=== PATIENT | male | born 1960 | race Caucasian/White ===

== ENCOUNTER 2016-11-06 03:19 | Inpatient (IN) ==
[2016-11-06 12:55] LABS: Hemoglobin A1C 11.6 %
[2016-11-06 13:26] LABS: Amphetamine Screen,Urine Negative ng/mL (Cutoff=1000); Barbiturate Screen,Urine Negative ng/mL (Cutoff=200); Benzodiazepines Screen,Urine Negative ng/mL (Cutoff=200); Cannabinoid Screen,Urine Negative ng/mL (Cutoff = 50); Cocaine Screen,Urine Positive ng/mL (Cutoff= 300); Opiate Screen,Urine Positive ng/mL (Cutoff=300); Phencyclidine Screen,Urine Negative ng/mL (Cutoff=25)
[2016-11-07 05:28] LABS: Basophils # 0.1 K/mcL (0.0-0.2); Basophils % 0.8 %; Eosinophils # 0.3 K/mcL (0.0-0.6); Eosinophils % 4.7 %; Hematocrit 40.5 % (37.5-50.1); Hemoglobin 13.6 g/dL (12.9-16.9); Immature Granulocytes % 0.3 % (0-4); Lymphocytes # 2.3 K/mcL (0.6-4.6); Lymphocytes % 37.6 %; Mean Corpuscular HGB Conc 33.6 g/dL (31.6-35.5); Mean Corpuscular Hemoglobin 28.5 pg (28.0-33.3); Mean Corpuscular Volume 84.9 fL (83.0-100.0); Mean Platelet Volume 9.9 fL (9.4-12.4); Monocytes # 0.6 K/mcL (0.0-1.3); Monocytes % 9.6 %; Neutrophils # 2.9 K/mcL (1.6-8.9); Platelet Count 216 K/mcL (140-400); Red Blood Count 4.77 M/mcL (4.19-5.50); Red Cell Distribution Width 12.9 % (11.5-14.5)
[2016-11-07 05:43] LABS: BUN/Creatinine Ratio 15 (6-26); Blood Urea Nitrogen 13 mg/dL (8-26); Calcium 8.2 mg/dL (8.6-10.8); Carbon Dioxide 17 mEq/L (19-29); Chloride 106 mEq/L (98-109); Glucose 254 mg/dL (70-99); Osmolality,Calculated 293 (280-300); Sodium 137 mEq/L (136-145); eGFR For African Americans > 60 (> 60); eGFR For Non-African Americans > 60 (> 60)
[2016-11-07 05:44] LABS: Magnesium 2.3 mg/dL (1.6-2.6); Potassium 4.4 mEq/L (3.5-4.5)
[2016-11-07 10:07] LABS: INR 1.1; Prothrombin Time 12.1 Seconds (9.4-12.1)
[2016-11-07 13:38] VITALS: BP 146/113
== END 2016-11-07 14:05 | disposition home or self-care (01) | DRG 282 ==
LOC: 2NENU
PROVIDERS: ADMIT Internal Medicine; ATTEND Internal Medicine

== ENCOUNTER 2019-08-08 21:34 | Observation (INO) ==
[2019-08-08] MEDS ORDERED: Ipratropium/Albuterol Neb 3 ML IH ONE (21:39)
[2019-08-08] MEDS ORDERED: predniSONE 20 MG TABLET PO ONE (21:39)
[2019-08-08 22:00] LABS: Basophils % 0.4 %; Eosinophils # 0.2 K/mcL (0.0-0.6); Eosinophils % 1.6 %; Hematocrit 46.4 % (37.5-50.1); Hemoglobin 15.5 g/dL (12.9-16.9); Immature Granulocytes % 0.5 % (0-4); Lymphocytes # 2.6 K/mcL (0.6-4.6); Lymphocytes % 25.9 %; Mean Corpuscular HGB Conc 33.4 g/dL (31.6-35.5); Mean Corpuscular Hemoglobin 28.9 pg (28.0-33.3); Mean Corpuscular Volume 86.6 fL (83.0-100.0); Mean Platelet Volume 10.2 fL (9.4-12.4); Monocytes # 0.9 K/mcL (0.0-1.3); Monocytes % 8.9 %; Neutrophils # 6.3 K/mcL (1.6-8.9); Platelet Count 326 K/mcL (140-400); Red Blood Count 5.36 M/mcL (4.19-5.50); Red Cell Distribution Width 14.8 % (11.5-14.5); Segmented Neutrophils % 62.7 %; White Blood Count 10.1 K/mcL (4.3-11.1)
[2019-08-08 22:17] LABS: INR 1.3; Prothrombin Time 14.9 Seconds (9.4-12.1)
[2019-08-08 22:18] LABS: Alanine Aminotransferase 25 Units/L (7-52); Albumin 4.2 g/dL (3.5-5.7); Albumin/Globulin Ratio 1.4 (1.1-2.2); Alkaline Phosphatase 47 Units/L (34-104); Aspartate Amino Transferase 19 Units/L (13-39); BUN/Creatinine Ratio 19 (6-26); Bilirubin,Total 0.5 mg/dL (0.3-1.0); Blood Urea Nitrogen 23 mg/dL (8-23); Calcium 8.8 mg/dL (8.6-10.3); Carbon Dioxide 22 mEq/L (23-29); Chloride 106 mEq/L (98-107); Glucose 140 mg/dL (70-105); Osmolality,Calculated 288 (280-300); Potassium 4.2 mEq/L (3.5-5.1); Sodium 136 mEq/L (136-145); Total Protein 7.2 g/dL (6.4-8.9); eGFR For African Americans > 60 (> 60); eGFR For Non-African Americans > 60 (> 60)
[2019-08-08 22:25] LABS: Troponin I 0.06 ng/mL (< 0.04)
[2019-08-08] MEDS ORDERED: Isovue-370 500 ML BOTTLE IVP ONE (22:25)
[2019-08-08] MEDS ORDERED: Aspirin 325 MG TABLET PO ONE (22:26)
[2019-08-08] MEDS: Furosemide 40 MG/4 ML VIAL IVP ONE (23:01)
[2019-08-09] MEDS ORDERED: Ondansetron ODT 4 MG TAB.RAPDIS SL PRN (03:20)
[2019-08-09] MEDS ORDERED: Naloxone 0.4 MG/ML INJ IVP PRN (03:20)
[2019-08-09 04:43] LABS: Basophils % 0.4 %; Eosinophils % 0.1 %; Hematocrit 44.4 % (37.5-50.1); Hemoglobin 14.5 g/dL (12.9-16.9); Immature Granulocytes % 0.6 % (0-4); Lymphocytes # 0.6 K/mcL (0.6-4.6); Lymphocytes % 7.7 %; Mean Corpuscular HGB Conc 32.7 g/dL (31.6-35.5); Mean Corpuscular Hemoglobin 28.2 pg (28.0-33.3); Mean Corpuscular Volume 86.2 fL (83.0-100.0); Mean Platelet Volume 10.7 fL (9.4-12.4); Monocytes # 0.2 K/mcL (0.0-1.3); Platelet Count 309 K/mcL (140-400); Red Blood Count 5.15 M/mcL (4.19-5.50); Red Cell Distribution Width 14.6 % (11.5-14.5); Segmented Neutrophils % 89.2 %; White Blood Count 7.9 K/mcL (4.3-11.1)
[2019-08-09 05:10] LABS: Alanine Aminotransferase 23 Units/L (7-52); Albumin 3.9 g/dL (3.5-5.7); Albumin/Globulin Ratio 1.4 (1.1-2.2); Alkaline Phosphatase 44 Units/L (34-104); Aspartate Amino Transferase 18 Units/L (13-39); BUN/Creatinine Ratio 19 (6-26); Bilirubin,Total 0.5 mg/dL (0.3-1.0); Blood Urea Nitrogen 22 mg/dL (8-23); Calcium 8.5 mg/dL (8.6-10.3); Carbon Dioxide 22 mEq/L (23-29); Chloride 103 mEq/L (98-107); Chol/HDL Ratio 5.7 (0-4.9); Cholesterol 148 mg/dL (< 200); Globulin 2.8 g/dL (2.4-3.5); Glucose 268 mg/dL (70-105); HDL Cholesterol 26 mg/dL (40-59); LDL Cholesterol,Calculated 96 mg/dL (0-99); Magnesium 1.8 mg/dL (1.6-2.6); Osmolality,Calculated 293 (280-300); Phosphorous 3.3 mg/dL (2.7-4.5); Potassium 4.1 mEq/L (3.5-5.1); Sodium 135 mEq/L (136-145); Total Protein 6.7 g/dL (6.4-8.9); Triglycerides 131 mg/dL (< 150); eGFR For African Americans > 60 (> 60); eGFR For Non-African Americans > 60 (> 60)
[2019-08-09 05:16] LABS: Thyroid Stimulating Hormone 0.783 mcIU/mL (0.340-5.600)
[2019-08-09] MEDS ORDERED: D5% in Water 1,000 ML IVC PRN (05:35)
[2019-08-09] MEDS ORDERED: Dextrose Gel 15 GM/37.5 ML TUBE PO PRN ×2 (05:35)
[2019-08-09] MEDS ORDERED: *HR* Dextrose 50 % in Water (Syg) 50 ML SYRINGE IVP PRN (05:35)
[2019-08-09] MEDS: *HR* Heparin 5,000 UNIT/ML VIAL SQ SCH ×3 (06:52→21:27)
[2019-08-09] MEDS ORDERED: Furosemide 40 MG/4 ML VIAL IVP SCH (08:00)
[2019-08-09 08:44] LABS: Estimated Average Glucose 177 mg/dl
[2019-08-09 08:59] LABS: Bilirubin,Urine Negative (Negative); Blood,Urine Negative (Negative); Clarity,Urine Clear (Clear); Color,Urine Yellow (Yellow); Glucose,Urine (UA) Normal (Normal); Ketones,Urine Negative (Negative); Leukocyte Esterase,Urine Negative (Negative); Nitrite,Urine Negative (Negative); Protein,Urine Negative (Neg-Trace); Specific Gravity,Urine 1.013 (1.010-1.025); Urobilinogen,Urine Normal (Normal)
[2019-08-09] MEDS ORDERED: Metoprolol XL (24 HR) Succ 25 MG TAB.ER.24H PO SCH (09:00)
[2019-08-09 09:26] LABS: Amphetamine Screen,Urine Negative ng/mL (Cutoff=1000); Barbiturate Screen,Urine Negative ng/mL (Cutoff=200); Benzodiazepines Screen,Urine Negative ng/mL (Cutoff=200); Cannabinoid Screen,Urine Negative ng/mL (Cutoff = 50); Cocaine Screen,Urine Negative ng/mL (Cutoff= 300); Opiate Screen,Urine Negative ng/mL (Cutoff=300); Phencyclidine Screen,Urine Negative ng/mL (Cutoff=25)
[2019-08-09] MEDS: Aspirin Enteric Coated 81 MG Tablet PO SCH (10:39)
[2019-08-09] MEDS: traZODone 50 MG TABLET PO SCH ×2 (10:39→21:25)
[2019-08-09] MEDS: Insulin LISPRO 300 UNITS/3 ML VIAL SQ SCH ×3 (10:42→18:36)
[2019-08-09] MEDS: Furosemide 40 MG/4 ML VIAL IVP ONE (10:51)
[2019-08-09] MEDS: Nicotine 21 MG PATCH.TD24 TD SCH (21:57)
[2019-08-10] MEDS: *HR* Heparin 5,000 UNIT/ML VIAL SQ SCH ×3 (05:29→19:55)
[2019-08-10 06:58] LABS: BUN/Creatinine Ratio 25 (6-26); Blood Urea Nitrogen 28 mg/dL (8-23); Calcium 8.4 mg/dL (8.6-10.3); Carbon Dioxide 24 mEq/L (23-29); Chloride 104 mEq/L (98-107); Glucose 214 mg/dL (70-105); Osmolality,Calculated 300 (280-300); Potassium 3.9 mEq/L (3.5-5.1); Sodium 139 mEq/L (136-145); eGFR For African Americans > 60 (> 60); eGFR For Non-African Americans > 60 (> 60)
[2019-08-10] MEDS: traZODone 50 MG TABLET PO SCH ×2 (08:17→19:56)
[2019-08-10] MEDS: Aspirin Enteric Coated 81 MG Tablet PO SCH (08:17)
[2019-08-10] MEDS: Nicotine 21 MG PATCH.TD24 TD SCH (08:23)
[2019-08-10] MEDS: Insulin LISPRO 300 UNITS/3 ML VIAL SQ SCH ×3 (08:23→19:11)
[2019-08-10] MEDS: Cholecalciferol (D-3) 1,000 UNIT (25MCG) TABLET PO SCH (08:31)
[2019-08-10] MEDS ORDERED: Metoprolol XL (24 HR) Succ 50 MG TAB.ER.24H PO SCH (09:00)
[2019-08-10] MEDS ORDERED: Furosemide 40 MG/4 ML VIAL IVP SCH (09:00)
[2019-08-10] MEDS: Budesonide/Formoterol 80/4.5 1 PUFF INH IH SCH ×2 (10:19→21:32)
[2019-08-10] MEDS ORDERED: Albuterol 2.5 MG/3 ML NEBULIZER IH PRN (15:00)
[2019-08-10] MEDS: Spironolactone 25 MG TABLET PO SCH (17:28)
[2019-08-10] MEDS ORDERED: Insulin DETEMIR 100 UNIT/ML X5UNITS SQ SCH (21:00)
[2019-08-11 05:27] LABS: Hematocrit 44.6 % (37.5-50.1); Hemoglobin 14.9 g/dL (12.9-16.9); Mean Corpuscular HGB Conc 33.4 g/dL (31.6-35.5); Mean Corpuscular Hemoglobin 28.8 pg (28.0-33.3); Mean Corpuscular Volume 86.1 fL (83.0-100.0); Mean Platelet Volume 10.3 fL (9.4-12.4); Platelet Count 336 K/mcL (140-400); Red Blood Count 5.18 M/mcL (4.19-5.50); Red Cell Distribution Width 14.7 % (11.5-14.5); White Blood Count 8.8 K/mcL (4.3-11.1)
[2019-08-11] MEDS: *HR* Heparin 5,000 UNIT/ML VIAL SQ SCH (05:35)
[2019-08-11 05:49] LABS: BUN/Creatinine Ratio 24 (6-26); Blood Urea Nitrogen 30 mg/dL (8-23); Calcium 8.7 mg/dL (8.6-10.3); Carbon Dioxide 25 mEq/L (23-29); Chloride 103 mEq/L (98-107); Glucose 206 mg/dL (70-105); Osmolality,Calculated 298 (280-300); Potassium 4.1 mEq/L (3.5-5.1); Sodium 138 mEq/L (136-145); eGFR For African Americans > 60 (> 60); eGFR For Non-African Americans 58 (> 60)
[2019-08-11] MEDS: Budesonide/Formoterol 80/4.5 1 PUFF INH IH SCH (07:57)
[2019-08-11] MEDS: Insulin LISPRO 300 UNITS/3 ML VIAL SQ SCH (08:27)
[2019-08-11] MEDS ORDERED: Metoprolol XL (24 HR) Succ 25 MG TAB.ER.24H PO SCH (09:00)
[2019-08-11] MEDS ORDERED: Furosemide 40 MG TABLET PO SCH (09:00)
[2019-08-11] MEDS: Spironolactone 25 MG TABLET PO SCH (10:52)
[2019-08-11] MEDS: Cholecalciferol (D-3) 1,000 UNIT (25MCG) TABLET PO SCH (10:54)
[2019-08-11] MEDS: traZODone 50 MG TABLET PO SCH (10:54)
[2019-08-11] MEDS: Aspirin Enteric Coated 81 MG Tablet PO SCH (10:54)
[2019-08-11] MEDS: Nicotine 21 MG PATCH.TD24 TD SCH (10:55)
[2019-08-11 13:32] VITALS: BP 121/77
== END 2019-08-11 15:19 | disposition home or self-care (01) ==
LOC: 3BNU 21:34 → EMEROOARM 21:34 → 3BNU 23:35
PROVIDERS: ADMIT Family Medicine; ATTEND Family Medicine

== ENCOUNTER 2019-09-26 10:00 | Inpatient (IN) ==
[2019-09-26] MEDS ORDERED: Ipratropium/Albuterol Neb 3 ML IH ONE (10:14)
[2019-09-26] MEDS ORDERED: methylPREDNISolone 125 MG/2 ML VIAL IVP ONE (10:15)
[2019-09-26 10:58] LABS: Hematocrit 48.2 % (37.5-50.1); Hemoglobin 15.6 g/dL (12.9-16.9); Mean Corpuscular HGB Conc 32.4 g/dL (31.6-35.5); Mean Corpuscular Hemoglobin 28.3 pg (28.0-33.3); Mean Corpuscular Volume 87.3 fL (83.0-100.0); Mean Platelet Volume 10.6 fL (9.4-12.4); Platelet Count 193 K/mcL (140-400); Red Blood Count 5.52 M/mcL (4.19-5.50); Red Cell Distribution Width 18.5 % (11.5-14.5); White Blood Count 8.1 K/mcL (4.3-11.1)
[2019-09-26] MEDS ORDERED: Isovue-370 500 ML BOTTLE IVP ONE (11:03)
[2019-09-26 11:21] LABS: Alanine Aminotransferase 84 Units/L (7-52); Albumin 3.4 g/dL (3.5-5.7); Albumin/Globulin Ratio 1.3 (1.1-2.2); Alkaline Phosphatase 55 Units/L (34-104); Aspartate Amino Transferase 77 Units/L (13-39); BUN/Creatinine Ratio 23 (6-26); Bilirubin,Total 2.3 mg/dL (0.3-1.0); Blood Urea Nitrogen 25 mg/dL (8-23); Calcium 8.3 mg/dL (8.6-10.3); Carbon Dioxide 25 mEq/L (23-29); Chloride 102 mEq/L (98-107); Globulin 2.7 g/dL (2.4-3.5); Glucose 193 mg/dL (70-105); Lipase 9 Units/L (11-82); Osmolality,Calculated 294 (280-300); Potassium 3.6 mEq/L (3.5-5.1); Sodium 137 mEq/L (136-145); Total Protein 6.1 g/dL (6.4-8.9); eGFR For African Americans > 60 (> 60); eGFR For Non-African Americans > 60 (> 60)
[2019-09-26 11:27] LABS: Troponin I 0.09 ng/mL (< 0.04)
[2019-09-26 11:27] LABS: Bilirubin,Urine Small (Negative); Blood,Urine Negative (Negative); Clarity,Urine Clear (Clear); Color,Urine Dark Yellow (Yellow); Glucose,Urine (UA) Normal (Normal); Ketones,Urine Negative (Negative); Leukocyte Esterase,Urine Negative (Negative); Nitrite,Urine Negative (Negative); Protein,Urine 30 mg/dL (Neg-Trace); Specific Gravity,Urine 1.026 (1.010-1.025)
[2019-09-26 11:29] LABS: Bacteria,Urine None Seen per hpf (None-Few); Hyaline Casts,Urine None Seen per lpf (None-Few); Squamous Epithelial Cell,Urine Moderate per lpf (None-Few); WBC,Urine 0-3 per hpf (0-3)
[2019-09-26] MEDS ORDERED: Furosemide 40 MG/4 ML VIAL IVP ONE (12:03)
[2019-09-26] MEDS ORDERED: Piperacillin/Tazobactam 3.375 GM in 0.9 % Sodium Chloride Mini Bag 100 ML IVPB ONE (12:18)
[2019-09-26] MEDS ORDERED: levoFLOXacin 750 MG/150 ML 750 MG/150 ML BAG IVPB ONE (12:19)
[2019-09-26] MEDS ORDERED: Naloxone 0.4 MG/ML INJ IVP PRN (15:08)
[2019-09-26] MEDS ORDERED: Ipratropium/Albuterol Neb 3 ML IH PRN (15:11)
[2019-09-26] MEDS ORDERED: *HR* Dextrose 50 % in Water (Syg) 50 ML SYRINGE IVP PRN (15:12)
[2019-09-26] MEDS ORDERED: Dextrose Gel 15 GM/37.5 ML TUBE PO PRN ×2 (15:12)
[2019-09-26] MEDS ORDERED: D5% in Water 1,000 ML IVC PRN (15:12)
[2019-09-26] MEDS: *HR* Heparin 5,000 UNIT/ML VIAL SQ SCH (17:40)
[2019-09-26] MEDS: Metoprolol XL (24 HR) Succ 50 MG TAB.ER.24H PO SCH (17:40)
[2019-09-26] MEDS: Insulin LISPRO 300 UNITS/3 ML VIAL SQ SCH ×2 (17:46→21:54)
[2019-09-26] MEDS: Nicotine 7 MG PATCH.TD24 TD SCH (17:52)
[2019-09-26] MEDS: Piperacillin/Tazobactam 3.375 GM in 0.9 % Sodium Chloride Mini Bag 100 ML IVPB SCH (21:54)
[2019-09-27] MEDS: Nystatin POWDER 30 GM BOTTLE TP SCH ×4 (00:51→21:06)
[2019-09-27 01:34] LABS: Hematocrit 47.6 % (37.5-50.1); Hemoglobin 15.2 g/dL (12.9-16.9); Immature Granulocytes % 0.3 % (0-4); Lymphocytes # 0.4 K/mcL (0.6-4.6); Lymphocytes % 6.6 %; Mean Corpuscular HGB Conc 31.9 g/dL (31.6-35.5); Mean Corpuscular Hemoglobin 27.8 pg (28.0-33.3); Mean Corpuscular Volume 87.2 fL (83.0-100.0); Mean Platelet Volume 11.3 fL (9.4-12.4); Monocytes # 0.1 K/mcL (0.0-1.3); Monocytes % 2.2 %; Neutrophils # 5.4 K/mcL (1.6-8.9); Platelet Count 177 K/mcL (140-400); Red Blood Count 5.46 M/mcL (4.19-5.50); Red Cell Distribution Width 18.8 % (11.5-14.5); Segmented Neutrophils % 90.9 %; White Blood Count 5.9 K/mcL (4.3-11.1)
[2019-09-27 01:52] LABS: Alanine Aminotransferase 69 Units/L (7-52); Albumin 3.2 g/dL (3.5-5.7); Albumin/Globulin Ratio 1.3 (1.1-2.2); Alkaline Phosphatase 54 Units/L (34-104); Aspartate Amino Transferase 57 Units/L (13-39); BUN/Creatinine Ratio 21 (6-26); Bilirubin,Direct 0.7 mg/dL (0.0-0.2); Bilirubin,Indirect 0.7 mg/dL (0.0-1.0); Bilirubin,Total 1.4 mg/dL (0.3-1.0); Blood Urea Nitrogen 24 mg/dL (8-23); Calcium 7.9 mg/dL (8.6-10.3); Carbon Dioxide 23 mEq/L (23-29); Chloride 103 mEq/L (98-107); Globulin 2.5 g/dL (2.4-3.5); Glucose 273 mg/dL (70-105); Osmolality,Calculated 296 (280-300); Potassium 4.1 mEq/L (3.5-5.1); Sodium 136 mEq/L (136-145); Total Protein 5.7 g/dL (6.4-8.9); eGFR For African Americans > 60 (> 60); eGFR For Non-African Americans > 60 (> 60)
[2019-09-27] MEDS: Piperacillin/Tazobactam 3.375 GM in 0.9 % Sodium Chloride Mini Bag 100 ML IVPB SCH ×4 (03:38→23:36)
[2019-09-27] MEDS ORDERED: methylPREDNISolone 125 MG/2 ML VIAL IVP SCH (05:41)
[2019-09-27 06:05] LABS: ABG Base Excess -3 mEq/L (-2 to 3); ABG HCO3 22 mEq/L (21-27); ABG Oxygen Saturation 98 % (95-98); ABG PCO2 36 mmHg (35-45); ABG PH 7.39 pH Units (7.32-7.45); ABG PO2 111 mmHg (85-104); ABG TCO2 23 mEq/L (20-26)
[2019-09-27] MEDS: *HR* Heparin 5,000 UNIT/ML VIAL SQ SCH ×2 (06:29→15:51)
[2019-09-27] MEDS ORDERED: Aminoglycoside Consult 1 EACH MC ONE (08:20)
[2019-09-27] MEDS: Insulin LISPRO 300 UNITS/3 ML VIAL SQ SCH ×4 (08:24→21:06)
[2019-09-27] MEDS: Metoprolol XL (24 HR) Succ 50 MG TAB.ER.24H PO SCH (08:25)
[2019-09-27] MEDS: Nicotine 7 MG PATCH.TD24 TD SCH (08:25)
[2019-09-27] MEDS ORDERED: ALPRAZolam 0.5 MG TABLET PO ONE (08:40)
[2019-09-27] MEDS ORDERED: Furosemide 40 MG/4 ML VIAL IVP SCH (09:00)
[2019-09-27] MEDS ORDERED: Nicotine 7 MG PATCH.TD24 TD SCH (09:00)
[2019-09-27] MEDS ORDERED: Furosemide 40 MG/4 ML VIAL IVP ONE (13:46)
[2019-09-27] MEDS: MethylPREDNISolone 40 MG/ML VIAL IVP SCH ×2 (15:48→23:35)
[2019-09-27] MEDS: Aspirin Enteric Coated 81 MG Tablet PO SCH (15:50)
[2019-09-27] MEDS ORDERED: Vancomycin 1,750 MG in 0.9 % Sodium Chloride 250 ML IVPB SCH (16:00)
[2019-09-27] MEDS: *HR* LORazepam 2 MG/ML VIAL IVP PRN (17:30)
[2019-09-27] MEDS ORDERED: Haloperidol Lactate 5 MG/ML VIAL IVP ONE (20:40)
[2019-09-27] MEDS: Insulin DETEMIR 100 UNIT/ML X5UNITS SQ SCH (21:06)
[2019-09-27] MEDS: Vancomycin Oral Soln 125 MG/2.5 ML UDC PO SCH (21:13)
[2019-09-27] MEDS ORDERED: *HR* Promethazine 25 MG/ML VIAL IVP ONE (21:52)
[2019-09-28 02:42] LABS: Basophils % 0.1 %; Hematocrit 49.3 % (37.5-50.1); Hemoglobin 16.2 g/dL (12.9-16.9); Immature Granulocytes % 0.5 % (0-4); Lymphocytes % 8.8 %; Mean Corpuscular HGB Conc 32.9 g/dL (31.6-35.5); Mean Corpuscular Hemoglobin 28.5 pg (28.0-33.3); Mean Corpuscular Volume 86.6 fL (83.0-100.0); Mean Platelet Volume 11.4 fL (9.4-12.4); Monocytes # 0.5 K/mcL (0.0-1.3); Monocytes % 4.8 %; Platelet Count 170 K/mcL (140-400); Red Blood Count 5.69 M/mcL (4.19-5.50); Red Cell Distribution Width 18.8 % (11.5-14.5); Segmented Neutrophils % 85.8 %
[2019-09-28 02:44] LABS: Neutrophils # 9.4 K/mcL (1.6-8.9)
[2019-09-28 03:04] LABS: BUN/Creatinine Ratio 27 (6-26); Blood Urea Nitrogen 34 mg/dL (8-23); Calcium 8.2 mg/dL (8.6-10.3); Carbon Dioxide 20 mEq/L (23-29); Chloride 104 mEq/L (98-107); Glucose 141 mg/dL (70-105); Osmolality,Calculated 290 (280-300); Sodium 135 mEq/L (136-145); eGFR For African Americans > 60 (> 60); eGFR For Non-African Americans 59 (> 60)
[2019-09-28] MEDS: *HR* Heparin 5,000 UNIT/ML VIAL SQ SCH ×2 (04:39→16:43)
[2019-09-28] MEDS: Budesonide/Formoterol 80/4.5 1 PUFF INH IH SCH ×2 (07:29→19:46)
[2019-09-28] MEDS: Insulin LISPRO 300 UNITS/3 ML VIAL SQ SCH ×4 (07:40→20:24)
[2019-09-28] MEDS ORDERED: Furosemide 40 MG/4 ML VIAL IVP SCH (08:00)
[2019-09-28] MEDS: Piperacillin/Tazobactam 3.375 GM in 0.9 % Sodium Chloride Mini Bag 100 ML IVPB SCH ×3 (08:23→23:44)
[2019-09-28] MEDS: MethylPREDNISolone 40 MG/ML VIAL IVP SCH ×3 (08:29→23:44)
[2019-09-28] MEDS: Metoprolol XL (24 HR) Succ 50 MG TAB.ER.24H PO SCH (08:31)
[2019-09-28] MEDS: Spironolactone 25 MG TABLET PO SCH (08:31)
[2019-09-28] MEDS: Vancomycin Oral Soln 125 MG/2.5 ML UDC PO SCH ×4 (08:31→20:26)
[2019-09-28] MEDS: Aspirin Enteric Coated 81 MG Tablet PO SCH (08:32)
[2019-09-28] MEDS: Nicotine 21 MG PATCH.TD24 TD SCH (08:37)
[2019-09-28] MEDS: Nystatin POWDER 30 GM BOTTLE TP SCH ×3 (09:54→20:26)
[2019-09-28] MEDS: GI Cocktail 40 ML EACH PO ONE (12:28)
[2019-09-28] MEDS: Furosemide 40 MG/4 ML VIAL IVP SCH ×2 (15:46→18:24)
[2019-09-28] MEDS: Insulin DETEMIR 100 UNIT/ML X5UNITS SQ SCH (20:25)
[2019-09-29 02:24] LABS: Basophils % 0.1 %; Hematocrit 49.8 % (37.5-50.1); Hemoglobin 16.5 g/dL (12.9-16.9); Immature Granulocytes % 0.8 % (0-4); Lymphocytes # 0.6 K/mcL (0.6-4.6); Lymphocytes % 6.3 %; Mean Corpuscular HGB Conc 33.1 g/dL (31.6-35.5); Mean Corpuscular Hemoglobin 28.1 pg (28.0-33.3); Mean Corpuscular Volume 84.7 fL (83.0-100.0); Mean Platelet Volume 11.6 fL (9.4-12.4); Monocytes # 0.6 K/mcL (0.0-1.3); Monocytes % 6.6 %; Neutrophils # 8.3 K/mcL (1.6-8.9); Nucleated Red Blood Cells 0.5 /100 WBC (0); Platelet Count 187 K/mcL (140-400); Red Blood Count 5.88 M/mcL (4.19-5.50); Segmented Neutrophils % 86.2 %; White Blood Count 9.7 K/mcL (4.3-11.1)
[2019-09-29 02:44] LABS: Calcium 8.2 mg/dL (8.6-10.3)
[2019-09-29] MEDS: *HR* Heparin 5,000 UNIT/ML VIAL SQ SCH ×2 (04:56→17:37)
[2019-09-29] MEDS: Metoprolol XL (24 HR) Succ 50 MG TAB.ER.24H PO SCH (08:18)
[2019-09-29] MEDS: Nicotine 21 MG PATCH.TD24 TD SCH (08:18)
[2019-09-29] MEDS: MethylPREDNISolone 40 MG/ML VIAL IVP SCH (08:18)
[2019-09-29] MEDS: Spironolactone 25 MG TABLET PO SCH (08:18)
[2019-09-29] MEDS: Aspirin Enteric Coated 81 MG Tablet PO SCH (08:18)
[2019-09-29] MEDS: Vancomycin Oral Soln 125 MG/2.5 ML UDC PO SCH (08:19)
[2019-09-29] MEDS: Piperacillin/Tazobactam 3.375 GM in 0.9 % Sodium Chloride Mini Bag 100 ML IVPB SCH (08:19)
[2019-09-29] MEDS: Insulin LISPRO 300 UNITS/3 ML VIAL SQ SCH ×4 (08:20→21:34)
[2019-09-29] MEDS: Budesonide/Formoterol 80/4.5 1 PUFF INH IH SCH ×2 (10:26→19:43)
[2019-09-29] MEDS ORDERED: GI Cocktail 40 ML EACH PO ONE (14:54)
[2019-09-29] MEDS ORDERED: metOLazone 2.5 MG TABLET PO ONE (15:00)
[2019-09-29] MEDS: predniSONE 20 MG TABLET PO SCH (17:31)
[2019-09-29] MEDS: Nystatin POWDER 30 GM BOTTLE TP SCH ×3 (17:31→23:10)
[2019-09-29] MEDS: Insulin DETEMIR 100 UNIT/ML X5UNITS SQ SCH (21:34)
[2019-09-29] MEDS: *HR* LORazepam 2 MG/ML VIAL IVP PRN (21:34)
[2019-09-30 06:11] LABS: Basophils % 0.1 %; Hemoglobin 16.2 g/dL (12.9-16.9); Immature Granulocytes % 0.7 % (0-4); Lymphocytes # 0.7 K/mcL (0.6-4.6); Lymphocytes % 5.7 %; Mean Corpuscular HGB Conc 33.1 g/dL (31.6-35.5); Mean Corpuscular Hemoglobin 27.8 pg (28.0-33.3); Mean Corpuscular Volume 84.2 fL (83.0-100.0); Mean Platelet Volume 11.1 fL (9.4-12.4); Monocytes # 1.1 K/mcL (0.0-1.3); Monocytes % 9.5 %; Neutrophils # 9.8 K/mcL (1.6-8.9); Nucleated Red Blood Cells 0.2 /100 WBC (0); Platelet Count 165 K/mcL (140-400); Red Blood Count 5.82 M/mcL (4.19-5.50); Red Cell Distribution Width 18.9 % (11.5-14.5); White Blood Count 11.7 K/mcL (4.3-11.1)
[2019-09-30 06:30] LABS: Alanine Aminotransferase 51 Units/L (7-52); Albumin 3.3 g/dL (3.5-5.7); Albumin/Globulin Ratio 1.3 (1.1-2.2); Alkaline Phosphatase 57 Units/L (34-104); Aspartate Amino Transferase 35 Units/L (13-39); BUN/Creatinine Ratio 34 (6-26); Bilirubin,Total 1.5 mg/dL (0.3-1.0); Blood Urea Nitrogen 37 mg/dL (8-23); Calcium 8.6 mg/dL (8.6-10.3); Carbon Dioxide 25 mEq/L (23-29); Chloride 98 mEq/L (98-107); Globulin 2.5 g/dL (2.4-3.5); Glucose 212 mg/dL (70-105); Osmolality,Calculated 297 (280-300); Sodium 136 mEq/L (136-145); Total Protein 5.8 g/dL (6.4-8.9); eGFR For African Americans > 60 (> 60); eGFR For Non-African Americans > 60 (> 60)
[2019-09-30 07:00] LABS: Hepatitis B Surface Antigen Nonreactive (Nonreactive)
[2019-09-30 07:29] LABS: Hepatitis B Core IgM Nonreactive (Nonreactive)
[2019-09-30 07:30] LABS: Hepatitis A Antibody IgM Nonreactive (Nonreactive)
[2019-09-30] MEDS: *HR* Heparin 5,000 UNIT/ML VIAL SQ SCH ×2 (07:31→18:04)
[2019-09-30] MEDS: Budesonide/Formoterol 80/4.5 1 PUFF INH IH SCH ×2 (07:54→19:54)
[2019-09-30] MEDS: predniSONE 20 MG TABLET PO SCH (08:11)
[2019-09-30] MEDS: Nicotine 21 MG PATCH.TD24 TD SCH (08:12)
[2019-09-30] MEDS: Aspirin Enteric Coated 81 MG Tablet PO SCH (08:12)
[2019-09-30] MEDS: Metoprolol XL (24 HR) Succ 50 MG TAB.ER.24H PO SCH (08:12)
[2019-09-30] MEDS: Insulin LISPRO 300 UNITS/3 ML VIAL SQ SCH ×5 (08:13→23:28)
[2019-09-30] MEDS: Nystatin POWDER 30 GM BOTTLE TP SCH ×3 (08:14→23:22)
[2019-09-30] MEDS ORDERED: Albumin 25% 25gram/100mL 25 GM/100 ML IV.SOLN IVPB SCH (09:10)
[2019-09-30] MEDS ORDERED: Furosemide 40 MG/4 ML VIAL IVP SCH (09:15)
[2019-09-30] MEDS ORDERED: GI Cocktail 40 ML EACH PO ONE (10:17)
[2019-09-30] MEDS: Furosemide 40 MG/4 ML VIAL IVP SCH ×2 (10:30→18:03)
[2019-09-30 11:22] LABS: INR 1.6; Prothrombin Time 18.5 Seconds (9.4-12.1)
[2019-09-30] MEDS: GI Cocktail 40 ML EACH PO ONE (12:34)
[2019-09-30] MEDS: Vancomycin Oral Soln 125 MG/2.5 ML UDC PO SCH ×3 (12:38→23:10)
[2019-09-30 13:37] LABS: Hepatitis C Virus Antibody Reactive (Nonreactive)
[2019-09-30 13:49] LABS: RBC,Peritoneal Fluid 0.002 M/mcL
[2019-09-30 13:56] LABS: Appearance of Peritoneal Fl HAZY (Clear)
[2019-09-30 14:10] LABS: Lactate Dehydrogenase 323 Units/L (140-271); Total Protein 6.1 g/dL (6.4-8.9)
[2019-09-30 15:09] LABS: Basophils,Peritoneal Fluid 0 %; Eosinophils,Peritoneal Fluid 0 %
[2019-09-30] MEDS: Albumin 25% 25gram/100mL 25 GM/100 ML IV.SOLN IVPB SCH ×2 (15:54→23:22)
[2019-09-30 16:38] LABS: Amylase,Peritoneal Fluid 15 Units/L (No Ref Range); Glucose,Peritoneal Fluid 343 mg/dL (No Ref Range); LDH,Peritoneal Fluid 107 Units/L (No Ref Range); Total Protein,Peritoneal Fluid < 3.0 g/dL
[2019-09-30] MEDS: Insulin DETEMIR 100 UNIT/ML X5UNITS SQ SCH (23:15)
[2019-10-01] MEDS: *HR* Heparin 5,000 UNIT/ML VIAL SQ SCH ×2 (05:49→17:13)
[2019-10-01] MEDS: Albumin 25% 25gram/100mL 25 GM/100 ML IV.SOLN IVPB SCH ×3 (05:50→23:49)
[2019-10-01] MEDS: Budesonide/Formoterol 80/4.5 1 PUFF INH IH SCH ×2 (07:33→20:12)
[2019-10-01] MEDS: Nicotine 21 MG PATCH.TD24 TD SCH (10:12)
[2019-10-01] MEDS: Furosemide 40 MG/4 ML VIAL IVP SCH ×2 (10:12→19:02)
[2019-10-01] MEDS: Aspirin Enteric Coated 81 MG Tablet PO SCH (10:13)
[2019-10-01] MEDS: Metoprolol XL (24 HR) Succ 50 MG TAB.ER.24H PO SCH (10:13)
[2019-10-01] MEDS: Vancomycin Oral Soln 125 MG/2.5 ML UDC PO SCH ×4 (10:16→23:48)
[2019-10-01 11:03] LABS: Basophils % 0.1 %; Eosinophils % 0.3 %; Hematocrit 46.3 % (37.5-50.1); Hemoglobin 15.6 g/dL (12.9-16.9); Immature Granulocytes % 0.4 % (0-4); Lymphocytes # 1.6 K/mcL (0.6-4.6); Lymphocytes % 14.1 %; Mean Corpuscular HGB Conc 33.7 g/dL (31.6-35.5); Mean Corpuscular Hemoglobin 28.4 pg (28.0-33.3); Mean Corpuscular Volume 84.2 fL (83.0-100.0); Mean Platelet Volume 11.5 fL (9.4-12.4); Monocytes # 1.1 K/mcL (0.0-1.3); Neutrophils # 8.5 K/mcL (1.6-8.9); Platelet Count 181 K/mcL (140-400); Red Cell Distribution Width 18.1 % (11.5-14.5); Segmented Neutrophils % 75.1 %; White Blood Count 11.3 K/mcL (4.3-11.1)
[2019-10-01 11:12] LABS: Total Volume 24 Hour,Urine 4.78 Liters (0.80-1.80)
[2019-10-01 11:21] LABS: Alanine Aminotransferase 45 Units/L (7-52); Alkaline Phosphatase 48 Units/L (34-104); Aspartate Amino Transferase 40 Units/L (13-39); BUN/Creatinine Ratio 30 (6-26); Bilirubin,Total 1.7 mg/dL (0.3-1.0); Blood Urea Nitrogen 30 mg/dL (8-23); Calcium 9.4 mg/dL (8.6-10.3); Carbon Dioxide 37 mEq/L (23-29); Chloride 92 mEq/L (98-107); Glucose 120 mg/dL (70-105); Osmolality,Calculated 291 (280-300); Potassium 3.5 mEq/L (3.5-5.1); Sodium 137 mEq/L (136-145); eGFR For African Americans > 60 (> 60); eGFR For Non-African Americans > 60 (> 60)
[2019-10-01 11:24] LABS: Protein/Creatinine Ratio,Urine 0.51 mg/mg (0.00-0.20)
[2019-10-01 11:39] LABS: Hematocrit 49.5 % (37.5-50.1); Hemoglobin 16.3 g/dL (12.9-16.9); Mean Corpuscular HGB Conc 32.9 g/dL (31.6-35.5); Mean Corpuscular Hemoglobin 28.5 pg (28.0-33.3); Mean Corpuscular Volume 86.7 fL (83.0-100.0); Mean Platelet Volume 10.7 fL (9.4-12.4); Platelet Count 163 K/mcL (140-400); Red Blood Count 5.71 M/mcL (4.19-5.50); Red Cell Distribution Width 18.8 % (11.5-14.5); White Blood Count 11.2 K/mcL (4.3-11.1)
[2019-10-01 11:46] LABS: Ferritin 75 ng/mL (20-250)
[2019-10-01] MEDS ORDERED: *HR* Phytonadione 5 MG TABLET PO ONE (12:18)
[2019-10-01] MEDS: Lactulose Oral Soln 20 GM/30 ML UDC PO SCH ×2 (13:55→23:48)
[2019-10-01] MEDS: Nystatin POWDER 30 GM BOTTLE TP SCH ×3 (13:55→23:48)
[2019-10-01] MEDS: Insulin LISPRO 300 UNITS/3 ML VIAL SQ SCH ×3 (13:56→23:48)
[2019-10-01 16:37] LABS: Fluid Source for Albumin PERITONEAL FL
[2019-10-01] MEDS: Insulin DETEMIR 100 UNIT/ML X5UNITS SQ SCH (23:48)
[2019-10-02 06:14] LABS: INR 1.5
[2019-10-02] MEDS: Albumin 25% 25gram/100mL 25 GM/100 ML IV.SOLN IVPB SCH (06:20)
[2019-10-02] MEDS: *HR* Heparin 5,000 UNIT/ML VIAL SQ SCH ×2 (06:21→17:50)
[2019-10-02 06:26] LABS: BUN/Creatinine Ratio 31 (6-26); Blood Urea Nitrogen 30 mg/dL (8-23); Calcium 9.3 mg/dL (8.6-10.3); Carbon Dioxide 34 mEq/L (23-29); Chloride 94 mEq/L (98-107); Glucose 174 mg/dL (70-105); Osmolality,Calculated 296 (280-300); Potassium 3.6 mEq/L (3.5-5.1); Sodium 138 mEq/L (136-145); eGFR For African Americans > 60 (> 60); eGFR For Non-African Americans > 60 (> 60)
[2019-10-02] MEDS: Insulin LISPRO 300 UNITS/3 ML VIAL SQ SCH ×4 (07:44→23:10)
[2019-10-02] MEDS: Budesonide/Formoterol 80/4.5 1 PUFF INH IH SCH ×2 (07:52→21:41)
[2019-10-02] MEDS ORDERED: *HR* Phytonadione 5 MG TABLET PO ONE (10:34)
[2019-10-02] MEDS: Aspirin Enteric Coated 81 MG Tablet PO SCH (10:54)
[2019-10-02] MEDS: Furosemide 40 MG/4 ML VIAL IVP SCH ×3 (10:54→23:10)
[2019-10-02] MEDS: Lactulose Oral Soln 20 GM/30 ML UDC PO SCH ×2 (10:54→23:10)
[2019-10-02] MEDS: Nystatin POWDER 30 GM BOTTLE TP SCH ×3 (10:55→23:19)
[2019-10-02] MEDS: Metoprolol XL (24 HR) Succ 50 MG TAB.ER.24H PO SCH (10:55)
[2019-10-02] MEDS: Spironolactone 25 MG TABLET PO SCH (10:55)
[2019-10-02 11:05] LABS: AFP Tumor Marker Non-Pregnant 2 ng/mL (0-9)
[2019-10-02] MEDS: Pantoprazole 40 MG VIAL IVP SCH (11:10)
[2019-10-02] MEDS: Vancomycin Oral Soln 125 MG/2.5 ML UDC PO SCH ×4 (11:15→23:09)
[2019-10-02] MEDS: Nicotine 21 MG PATCH.TD24 TD SCH (11:15)
[2019-10-02] MEDS: Insulin DETEMIR 100 UNIT/ML X5UNITS SQ SCH (23:09)
[2019-10-02] MEDS: *HR* LORazepam 2 MG/ML VIAL IVP PRN (23:40)
[2019-10-03] MEDS: *HR* Heparin 5,000 UNIT/ML VIAL SQ SCH ×2 (05:08→18:18)
[2019-10-03 07:45] LABS: BUN/Creatinine Ratio 30 (6-26); Blood Urea Nitrogen 28 mg/dL (8-23); Calcium 8.7 mg/dL (8.6-10.3); Carbon Dioxide 32 mEq/L (23-29); Chloride 92 mEq/L (98-107); Glucose 314 mg/dL (70-105); Osmolality,Calculated 291 (280-300); Potassium 3.9 mEq/L (3.5-5.1); Sodium 132 mEq/L (136-145); eGFR For African Americans > 60 (> 60); eGFR For Non-African Americans > 60 (> 60)
[2019-10-03 08:13] LABS: ANA IgG by ELISA NONE DETECTED (None Detected); F-Actin (sm muscle) Ab IgG 4 Units (0-19)
[2019-10-03] MEDS ORDERED: GI Cocktail 40 ML EACH PO ONE (09:56)
[2019-10-03] MEDS: Pantoprazole 40 MG VIAL IVP SCH (10:16)
[2019-10-03] MEDS: Nicotine 21 MG PATCH.TD24 TD SCH (10:17)
[2019-10-03] MEDS: Spironolactone 25 MG TABLET PO SCH (10:17)
[2019-10-03] MEDS: Aspirin Enteric Coated 81 MG Tablet PO SCH (10:17)
[2019-10-03] MEDS: Insulin LISPRO 300 UNITS/3 ML VIAL SQ SCH ×4 (10:18→20:59)
[2019-10-03] MEDS: Vancomycin Oral Soln 125 MG/2.5 ML UDC PO SCH ×4 (10:18→21:03)
[2019-10-03] MEDS: Lactulose Oral Soln 20 GM/30 ML UDC PO SCH ×2 (10:19→21:05)
[2019-10-03] MEDS: Nystatin POWDER 30 GM BOTTLE TP SCH ×3 (10:19→21:05)
[2019-10-03] MEDS: Furosemide 40 MG/4 ML VIAL IVP SCH ×2 (10:19→21:04)
[2019-10-03] MEDS: Metoprolol XL (24 HR) Succ 50 MG TAB.ER.24H PO SCH (10:20)
[2019-10-03] MEDS: Budesonide/Formoterol 80/4.5 1 PUFF INH IH SCH ×2 (10:36→20:07)
[2019-10-03] MEDS: Albumin 25% 25gram/100mL 25 GM/100 ML IV.SOLN IVPB SCH (17:35)
[2019-10-03] MEDS: Insulin DETEMIR 100 UNIT/ML X5UNITS SQ SCH (21:03)
[2019-10-03] MEDS: *HR* LORazepam 2 MG/ML VIAL IVP PRN (21:04)
[2019-10-04] MEDS: Albumin 25% 25gram/100mL 25 GM/100 ML IV.SOLN IVPB SCH (00:44)
[2019-10-04 02:34] LABS: INR 1.2; Prothrombin Time 13.7 Seconds (9.4-12.1)
[2019-10-04 03:00] LABS: Alanine Aminotransferase 44 Units/L (7-52); Albumin 4.3 g/dL (3.5-5.7); Alkaline Phosphatase 55 Units/L (34-104); Aspartate Amino Transferase 43 Units/L (13-39); BUN/Creatinine Ratio 27 (6-26); Bilirubin,Total 1.4 mg/dL (0.3-1.0); Blood Urea Nitrogen 31 mg/dL (8-23); Carbon Dioxide 28 mEq/L (23-29); Chloride 95 mEq/L (98-107); Globulin 2.2 g/dL (2.4-3.5); Glucose 303 mg/dL (70-105); Osmolality,Calculated 298 (280-300); Potassium 3.9 mEq/L (3.5-5.1); Sodium 135 mEq/L (136-145); Total Protein 6.5 g/dL (6.4-8.9); eGFR For African Americans > 60 (> 60); eGFR For Non-African Americans > 60 (> 60)
[2019-10-04] MEDS: *HR* Heparin 5,000 UNIT/ML VIAL SQ SCH (06:15)
[2019-10-04] MEDS ORDERED: Albumin 25% 25gram/100mL 25 GM/100 ML IV.SOLN IVPB SCH (06:50)
[2019-10-04] MEDS: Budesonide/Formoterol 80/4.5 1 PUFF INH IH SCH (07:04)
[2019-10-04] MEDS ORDERED: Furosemide 40 MG/4 ML VIAL IVP SCH (08:00)
[2019-10-04 08:01] VITALS: BP 121/85
[2019-10-05 09:30] LABS: HCV Quant Interpretation NOT DETECTED (Not Detected); HCV Quant Log NOT DETECTED log IU/mL
== END 2019-10-04 10:25 | disposition left against medical advice (07) | DRG 291 ==
LOC: 2ANU 10:00 → EMEROOARM 10:00 → SUATTDRO 12:56 → 2ANU 13:25 → SUATTDRO 09-27 12:43 → 2ANU 09-28 16:11
PROVIDERS: ADMIT Student in an Organized Health Care Education/Training Program; ATTEND Internal Medicine

== ENCOUNTER 2019-10-12 08:04 | Inpatient (IN) ==
[2019-10-12] MEDS ORDERED: 0.9 % Sodium Chloride 1,000 ML IVC ONE ×2 (08:17→23:32)
[2019-10-12] MEDS ORDERED: Sodium Bicarbonate 50 MEQ/50 ML VIAL IVP ONE ×2 (08:22→16:44)
[2019-10-12 08:25] LABS: ABG PCO2 < 13 mmHg (35-45); ABG PH 7.36 pH Units (7.32-7.45); ABG PO2 579 mmHg (85-104); Blood Gas Modality AF; Blood Gas VT 550 cc
[2019-10-12] MEDS ORDERED: Thiamine (B-1) 100 MG, Folic Acid 1 MG, MVI, adult with vitamin K 10 ML in 0.9 % Sodi... IVPB ONE (08:30)
[2019-10-12] MEDS ORDERED: Sodium Bicarbonate 50 MEQ/50 ML VIAL ONE (08:40)
[2019-10-12] MEDS ORDERED: *HR* Etomidate 20 MG/10 ML AMPUL IVP ONE ×2 (08:59→09:55)
[2019-10-12] MEDS ORDERED: *HR* Rocuronium Bromide 50 MG/5 ML VIAL IVP ONE (08:59)
[2019-10-12 09:04] LABS: Basophils # 0.1 K/mcL (0.0-0.2); Basophils % 0.5 %; Eosinophils % 0.1 %; Hematocrit 48.5 % (37.5-50.1); Hemoglobin 16.1 g/dL (12.9-16.9); Immature Granulocytes % 1.8 % (0-4); Lymphocytes # 1.7 K/mcL (0.6-4.6); Lymphocytes % 10.6 %; Mean Corpuscular HGB Conc 33.2 g/dL (31.6-35.5); Mean Corpuscular Hemoglobin 28.8 pg (28.0-33.3); Mean Corpuscular Volume 86.8 fL (83.0-100.0); Monocytes % 6.1 %; Neutrophils # 12.8 K/mcL (1.6-8.9); Nucleated Red Blood Cells 0.2 /100 WBC (0); Platelet Count 194 K/mcL (140-400); Red Blood Count 5.59 M/mcL (4.19-5.50); Red Cell Distribution Width 19.3 % (11.5-14.5); Segmented Neutrophils % 80.9 %; White Blood Count 15.8 K/mcL (4.3-11.1)
[2019-10-12 09:12] LABS: INR 2.4; Prothrombin Time 27.3 Seconds (9.4-12.1)
[2019-10-12 09:14] LABS: Activated Partial Thrombo Time 29.7 Seconds (26.0-36.0)
[2019-10-12] MEDS ORDERED: Propofol 500 MG/50 ML INFUS..BTL ONE (09:14)
[2019-10-12 09:34] LABS: Troponin I 0.13 ng/mL (< 0.04)
[2019-10-12 09:35] LABS: Alanine Aminotransferase 77 Units/L (7-52); Albumin 4.4 g/dL (3.5-5.7); Albumin/Globulin Ratio 1.6 (1.1-2.2); Alkaline Phosphatase 93 Units/L (34-104); Aspartate Amino Transferase 85 Units/L (13-39); BUN/Creatinine Ratio 24 (6-26); Bilirubin,Direct 1.9 mg/dL (0.0-0.2); Bilirubin,Indirect 1.6 mg/dL (0.0-1.0); Bilirubin,Total 3.5 mg/dL (0.3-1.0); Blood Urea Nitrogen 34 mg/dL (8-23); Calcium 9.3 mg/dL (8.6-10.3); Carbon Dioxide 14 mEq/L (23-29); Chloride 98 mEq/L (98-107); Creatine Kinase 138 Units/L (30-223); Ethanol < 10 mg/dL (Less than 10); Globulin 2.7 g/dL (2.4-3.5); Glucose 78 mg/dL (70-105); Osmolality,Calculated 278 (280-300); Potassium 6.6 mEq/L (3.5-5.1); Sodium 131 mEq/L (136-145); Total Protein 7.1 g/dL (6.4-8.9); eGFR For African Americans > 60 (> 60); eGFR For Non-African Americans 51 (> 60)
[2019-10-12] MEDS ORDERED: Insulin Human Regular 10 UNIT in 0.9 % Sodium Chloride 10 ML IV ONE ×2 (09:38→20:42)
[2019-10-12] MEDS ORDERED: *HR* Dextrose 50 % in Water (Syg) 50 ML SYRINGE IVP STA (09:38)
[2019-10-12] MEDS ORDERED: Albuterol 2.5 MG/3 ML NEBULIZER IH ONE ×2 (09:39→20:43)
[2019-10-12 09:46] LABS: Thyroid Stimulating Hormone 3.309 mcIU/mL (0.340-5.600)
[2019-10-12] MEDS ORDERED: *HR* Rocuronium Bromide 100 MG/10 ML VIAL IVC ONE (09:55)
[2019-10-12 11:19] LABS: BUN/Creatinine Ratio 27 (6-26); Blood Urea Nitrogen 34 mg/dL (8-23); Calcium 9.5 mg/dL (8.6-10.3); Carbon Dioxide 14 mEq/L (23-29); Chloride 101 mEq/L (98-107); Glucose 49 mg/dL (70-105); Osmolality,Calculated 283 (280-300); Potassium 5.7 mEq/L (3.5-5.1); Sodium 134 mEq/L (136-145); eGFR For African Americans > 60 (> 60); eGFR For Non-African Americans 57 (> 60)
[2019-10-12] MEDS ORDERED: Piperacillin/Tazobactam 3.375 GM in 0.9 % Sodium Chloride Mini Bag 100 ML IVPB ONE (11:28)
[2019-10-12 12:30] LABS: Creatine Kinase 140 Units/L (30-223)
[2019-10-12] MEDS ORDERED: Naloxone 0.4 MG/ML INJ IVP PRN (12:58)
[2019-10-12] MEDS ORDERED: Artificial Tears SOLN 15 ML BOTTLE BOTH EYES PRN (13:22)
[2019-10-12] MEDS ORDERED: D5% in Water 1,000 ML IVC PRN (13:31)
[2019-10-12] MEDS ORDERED: Dextrose Gel 15 GM/37.5 ML TUBE PO PRN ×2 (13:31)
[2019-10-12] MEDS ORDERED: Furosemide 40 MG/4 ML VIAL IVP SCH (13:45)
[2019-10-12 13:46] LABS: Troponin I 0.15 ng/mL (< 0.04)
[2019-10-12 13:55] LABS: Magnesium 2.2 mg/dL (1.6-2.6)
[2019-10-12] MEDS: FentaNYL (PF) 1,000 MCG in 0.9 % Sodium Chloride 80 ML IVC SCH (14:01)
[2019-10-12] MEDS ORDERED: Vancomycin 1 EACH in 0.9 % Sodium Chloride 500 ML IVPB SCH (14:15)
[2019-10-12 14:27] LABS: Estimated Average Glucose 186 mg/dl
[2019-10-12 15:07] LABS: Bilirubin,Urine Small (Negative); Blood,Urine Large (Negative); Clarity,Urine Cloudy (Clear); Color,Urine Dark Yellow (Yellow); Glucose,Urine (UA) Normal (Normal); Ketones,Urine Negative (Negative); Leukocyte Esterase,Urine Negative (Negative); Nitrite,Urine Negative (Negative); Protein,Urine 100 mg/dL (Neg-Trace); Specific Gravity,Urine 1.022 (1.010-1.025); Urobilinogen,Urine Normal (Normal)
[2019-10-12 15:13] LABS: Calcium 8.4 mg/dL (8.6-10.3); Potassium 5.4 mEq/L (3.5-5.1)
[2019-10-12] MEDS: Piperacillin/Tazobactam 3.375 GM in 0.9 % Sodium Chloride Mini Bag 100 ML IVPB SCH ×2 (15:14→23:41)
[2019-10-12 15:48] LABS: Hyaline Casts,Urine Few per lpf (None-Few); RBC,Urine 30-50 per hpf (0-3); Squamous Epithelial Cell,Urine Few per lpf (None-Few)
[2019-10-12 15:49] LABS: Bacteria,Urine Many per hpf (None-Few)
[2019-10-12 15:56] LABS: Amphetamine Screen,Urine Positive ng/mL (Cutoff=1000); Barbiturate Screen,Urine Negative ng/mL (Cutoff=200); Benzodiazepines Screen,Urine Positive ng/mL (Cutoff=200); Cannabinoid Screen,Urine Negative ng/mL (Cutoff = 50); Cocaine Screen,Urine Negative ng/mL (Cutoff= 300); Opiate Screen,Urine Negative ng/mL (Cutoff=300); Phencyclidine Screen,Urine Negative ng/mL (Cutoff=25)
[2019-10-12] MEDS: Ipratropium/Albuterol Neb 3 ML IH SCH ×3 (16:17→23:50)
[2019-10-12] MEDS ORDERED: Vancomycin 500 MG in 0.9 % Sodium Chloride Mini Bag 100 ML IVPB ONE (16:19)
[2019-10-12] MEDS: Artificial Tears SOLN 15 ML BOTTLE BOTH EYES SCH ×3 (16:51→23:48)
[2019-10-12 17:01] LABS: ABG Base Excess -14 mEq/L (-2 to 3); ABG HCO3 18 mEq/L (21-27); ABG Oxygen Saturation 99 % (95-98); ABG PCO2 63 mmHg (35-45); ABG PH 7.06 pH Units (7.32-7.45); ABG PO2 184 mmHg (85-104); ABG TCO2 20 mEq/L (20-26); Blood Gas VT 500 cc
[2019-10-12] MEDS ORDERED: Sodium Bicarbonate 50 MEQ in 0.45 % Sodium Chloride 1,000 ML IVC SCH (17:15)
[2019-10-12] MEDS ORDERED: *HR* Phytonadione 10 MG/ML AMPUL SQ ONE (17:18)
[2019-10-12] MEDS: Albumin 25% 25gram/100mL 25 GM/100 ML IV.SOLN IVC SCH ×4 (17:57→20:06)
[2019-10-12] MEDS ORDERED: Norepinephrine 4 MG in 0.9 % Sodium Chloride 250 ML IVC SCH (18:00)
[2019-10-12] MEDS ORDERED: *HR* Norepinephrine 4 MG/4 ML VIAL IVC ONE (18:03)
[2019-10-12] MEDS ORDERED: D5% in Water 250 ML ONE (18:03)
[2019-10-12] MEDS ORDERED: 0.9 % Sodium Chloride 1,000 ML ONE ×2 (18:05→23:36)
[2019-10-12] MEDS ORDERED: 0.9 % Sodium Chloride 500 ML ONE (18:20)
[2019-10-12 18:38] LABS: ABG Base Excess -12 mEq/L (-2 to 3); ABG HCO3 15 mEq/L (21-27); ABG Oxygen Saturation 100 % (95-98); ABG PCO2 37 mmHg (35-45); ABG PH 7.22 pH Units (7.32-7.45); ABG PO2 203 mmHg (85-104); ABG TCO2 16 mEq/L (20-26); Blood Gas Modality ASSIST CONTROL; Blood Gas VT 550 cc
[2019-10-12] MEDS: Insulin LISPRO 300 UNITS/3 ML VIAL SQ SCH ×2 (18:50→23:34)
[2019-10-12] MEDS: Octreotide 400 MCG in 0.9 % Sodium Chloride 100 ML IVC SCH (20:03)
[2019-10-12] MEDS: Lactulose Oral Soln 20 GM/30 ML UDC PO SCH (20:06)
[2019-10-12] MEDS: Chlorhexidine Rinse 15 ML MOUTHWASH MM SCH (20:06)
[2019-10-12] MEDS: Pantoprazole 40 MG VIAL IVP SCH (20:06)
[2019-10-12 20:09] LABS: Hematocrit 46.5 % (37.5-50.1)
[2019-10-12 20:10] LABS: Hemoglobin 14.2 g/dL (12.9-16.9)
[2019-10-12 20:32] LABS: Calcium 8.3 mg/dL (8.6-10.3); Potassium 7.2 mEq/L (3.5-5.1)
[2019-10-12] MEDS ORDERED: Calcium Gluconate 1gm/50mL 1 GM/50 ML BAG IVPB ONE (20:37)
[2019-10-12] MEDS: *HR* Dextrose 50 % in Water (Syg) 50 ML SYRINGE IVP PRN ×2 (20:44→20:45)
[2019-10-12] MEDS: D5% in Water 1,000 ML IVC SCH (20:48)
[2019-10-12 21:55] LABS: Amphetamine Screen,Urine Positive ng/mL (Cutoff=1000); Barbiturate Screen,Urine Negative ng/mL (Cutoff=200); Benzodiazepines Screen,Urine Negative ng/mL (Cutoff=200); Cannabinoid Screen,Urine Negative ng/mL (Cutoff = 50); Cocaine Screen,Urine Negative ng/mL (Cutoff= 300); Opiate Screen,Urine Negative ng/mL (Cutoff=300); Phencyclidine Screen,Urine Negative ng/mL (Cutoff=25)
[2019-10-12] MEDS: Sodium Bicarbonate 50 MEQ in 0.45 % Sodium Chloride 1,000 ML IVC SCH (22:05)
[2019-10-12 23:29] LABS: Calcium 8.3 mg/dL (8.6-10.3); Potassium 5.1 mEq/L (3.5-5.1)
[2019-10-13 02:24] LABS: Hematocrit 42.8 % (37.5-50.1); Hemoglobin 13.4 g/dL (12.9-16.9)
[2019-10-13 03:33] LABS: Basophils # 0.1 K/mcL (0.0-0.2); Basophils % 0.3 %; Eosinophils % 0.1 %; Hematocrit 43.8 % (37.5-50.1); Hemoglobin 13.8 g/dL (12.9-16.9); Immature Granulocytes % 0.8 % (0-4); Lymphocytes # 1.1 K/mcL (0.6-4.6); Mean Corpuscular HGB Conc 31.5 g/dL (31.6-35.5); Mean Corpuscular Hemoglobin 28.3 pg (28.0-33.3); Mean Corpuscular Volume 89.9 fL (83.0-100.0); Mean Platelet Volume 12.4 fL (9.4-12.4); Monocytes # 1.2 K/mcL (0.0-1.3); Monocytes % 5.4 %; Neutrophils # 19.7 K/mcL (1.6-8.9); Nucleated Red Blood Cells 0.4 /100 WBC (0); Platelet Count 132 K/mcL (140-400); Red Blood Count 4.87 M/mcL (4.19-5.50); Red Cell Distribution Width 18.7 % (11.5-14.5); Segmented Neutrophils % 88.4 %; White Blood Count 22.2 K/mcL (4.3-11.1)
[2019-10-13 03:35] LABS: INR 3.5; Prothrombin Time 39.4 Seconds (9.4-12.1)
[2019-10-13 03:37] LABS: Activated Partial Thrombo Time 36.6 Seconds (26.0-36.0)
[2019-10-13 03:44] LABS: Calcium 7.9 mg/dL (8.6-10.3); Magnesium 1.8 mg/dL (1.6-2.6); Potassium 5.9 mEq/L (3.5-5.1)
[2019-10-13] MEDS: Norepinephrine 4 MG in 0.9 % Sodium Chloride 250 ML IVC SCH ×3 (03:48→19:00)
[2019-10-13] MEDS: Sodium Bicarbonate 50 MEQ in 0.45 % Sodium Chloride 1,000 ML IVC SCH ×5 (03:49→22:50)
[2019-10-13] MEDS: Artificial Tears SOLN 15 ML BOTTLE BOTH EYES SCH ×6 (03:50→22:57)
[2019-10-13] MEDS: Ipratropium/Albuterol Neb 3 ML IH SCH ×6 (03:57→23:41)
[2019-10-13] MEDS ORDERED: 0.9 % Sodium Chloride 1,000 ML IVC ONE (04:01)
[2019-10-13] MEDS ORDERED: Insulin Human Regular 10 UNIT in 0.9 % Sodium Chloride 10 ML IV ONE (04:02)
[2019-10-13] MEDS ORDERED: Calcium Gluconate 1gm/50mL 1 GM/50 ML BAG IVPB ONE (04:03)
[2019-10-13] MEDS: D5% in Water 1,000 ML IVC SCH ×3 (04:17→19:35)
[2019-10-13 04:22] LABS: ABG Base Excess -13 mEq/L (-2 to 3); ABG HCO3 12 mEq/L (21-27); ABG Oxygen Saturation 99 % (95-98); ABG PCO2 24 mmHg (35-45); ABG PO2 140 mmHg (85-104); ABG TCO2 13 mEq/L (20-26); Blood Gas Modality ASSIST CONTROL; Blood Gas VT 550 cc
[2019-10-13 04:37] LABS: Albumin 4.1 g/dL (3.5-5.7); Albumin/Globulin Ratio 2.3 (1.1-2.2); Bilirubin,Direct 2.3 mg/dL (0.0-0.2); Bilirubin,Indirect 1.4 mg/dL (0.0-1.0); Bilirubin,Total 3.7 mg/dL (0.3-1.0); Globulin 1.8 g/dL (2.4-3.5); Total Protein 5.9 g/dL (6.4-8.9)
[2019-10-13] MEDS: Insulin LISPRO 300 UNITS/3 ML VIAL SQ SCH ×4 (05:52→22:57)
[2019-10-13] MEDS: Piperacillin/Tazobactam 3.375 GM in 0.9 % Sodium Chloride Mini Bag 100 ML IVPB SCH ×3 (08:23→23:24)
[2019-10-13] MEDS: Pantoprazole 40 MG VIAL IVP SCH ×2 (08:23→19:35)
[2019-10-13] MEDS: Chlorhexidine Rinse 15 ML MOUTHWASH MM SCH ×2 (08:24→19:35)
[2019-10-13 08:37] LABS: Calcium 7.7 mg/dL (8.6-10.3); Potassium 4.9 mEq/L (3.5-5.1)
[2019-10-13 08:38] LABS: Hematocrit 40.6 % (37.5-50.1); Hemoglobin 13.2 g/dL (12.9-16.9)
[2019-10-13] MEDS ORDERED: Pantoprazole 40 MG VIAL IVP SCH (09:00)
[2019-10-13] MEDS: Octreotide 400 MCG in 0.9 % Sodium Chloride 100 ML IVC SCH (09:19)
[2019-10-13] MEDS: Lactulose Oral Soln 20 GM/30 ML UDC PO SCH ×2 (09:21→19:35)
[2019-10-13] MEDS ORDERED: Acetylcysteine 15,000 MG in D5% in Water 250 ML IVC ONE (09:27)
[2019-10-13 09:36] LABS: Estimated Average Glucose 186 mg/dl
[2019-10-13] MEDS ORDERED: 0.9 % Sodium Chloride 250 ML ONE (09:48)
[2019-10-13] MEDS: FentaNYL (PF) 1,000 MCG in 0.9 % Sodium Chloride 80 ML IVC SCH (09:55)
[2019-10-13] MEDS ORDERED: Perflutren Lipid Microsphere 1.3 ML in 0.9 % Sodium Chloride 8.7 ML IVP ONE (09:56)
[2019-10-13] MEDS ORDERED: Acetylcysteine 5,000 MG in D5% in Water 500 ML IVC ONE (11:00)
[2019-10-13 11:06] LABS: Sodium, Urine 14.6 mEq/L
[2019-10-13 13:23] LABS: Hematocrit 39.7 % (37.5-50.1); Hemoglobin 12.9 g/dL (12.9-16.9)
[2019-10-13 14:19] LABS: Hepatitis B Surface Antigen Nonreactive (Nonreactive)
[2019-10-13 14:49] LABS: Hepatitis B Core IgM Nonreactive (Nonreactive)
[2019-10-13 14:50] LABS: Hepatitis A Antibody IgM Nonreactive (Nonreactive)
[2019-10-13] MEDS ORDERED: Acetylcysteine 10,000 MG in D5% in Water 1,000 ML IVC ONE (15:00)
[2019-10-13 15:57] LABS: Acetaminophen < 10 mcg/mL (10-20); Ferritin 710 ng/mL (20-250)
[2019-10-13 16:10] LABS: Hepatitis C Virus Antibody Reactive (Nonreactive)
[2019-10-13] MEDS: Thiamine (B-1) 100 MG, Folic Acid 1 MG, MVI, adult with vitamin K 10 ML in 0.9 % Sodi... IVPB SCH (18:39)
[2019-10-13 19:25] LABS: Calcium 7.6 mg/dL (8.6-10.3); Potassium 3.7 mEq/L (3.5-5.1)
[2019-10-13] MEDS: Calcium Gluconate 1gm/50mL 1 GM/50 ML BAG IVPB SCH ×4 (22:20→23:25)
[2019-10-14 01:07] LABS: BUN/Creatinine Ratio 31 (6-26); Blood Urea Nitrogen 37 mg/dL (8-23); Calcium 8.3 mg/dL (8.6-10.3); Carbon Dioxide 18 mEq/L (23-29); Chloride 104 mEq/L (98-107); Glucose 188 mg/dL (70-105); Magnesium 1.8 mg/dL (1.6-2.6); Osmolality,Calculated 292 (280-300); Potassium 2.9 mEq/L (3.5-5.1); Sodium 134 mEq/L (136-145); eGFR For African Americans > 60 (> 60); eGFR For Non-African Americans > 60 (> 60)
[2019-10-14] MEDS ORDERED: Potassium Chloride Elixir 20 MEQ/15 ML UDC GTUBE ONE (01:28)
[2019-10-14] MEDS: FentaNYL (PF) 1,000 MCG in 0.9 % Sodium Chloride 80 ML IVC SCH ×2 (02:50→11:00)
[2019-10-14] MEDS: Ipratropium/Albuterol Neb 3 ML IH SCH ×4 (03:51→15:57)
[2019-10-14] MEDS: Octreotide 400 MCG in 0.9 % Sodium Chloride 100 ML IVC SCH ×2 (03:53→14:55)
[2019-10-14] MEDS: Artificial Tears SOLN 15 ML BOTTLE BOTH EYES SCH ×5 (03:55→20:23)
[2019-10-14 03:57] LABS: VBG Ionized Calcium 1.09 mmol/L (1.15-1.35)
[2019-10-14 04:03] LABS: INR 2.8
[2019-10-14 04:12] LABS: Alanine Aminotransferase 432 Units/L (7-52); Albumin 2.8 g/dL (3.5-5.7); Albumin/Globulin Ratio 1.6 (1.1-2.2); Alkaline Phosphatase 51 Units/L (34-104); Aspartate Amino Transferase 386 Units/L (13-39); BUN/Creatinine Ratio 31 (6-26); Bilirubin,Direct 2.3 mg/dL (0.0-0.2); Bilirubin,Indirect 1.3 mg/dL (0.0-1.0); Bilirubin,Total 3.6 mg/dL (0.3-1.0); Blood Urea Nitrogen 35 mg/dL (8-23); Calcium 8.2 mg/dL (8.6-10.3); Carbon Dioxide 18 mEq/L (23-29); Chloride 104 mEq/L (98-107); Globulin 1.7 g/dL (2.4-3.5); Glucose 199 mg/dL (70-105); Magnesium 2.1 mg/dL (1.6-2.6); Osmolality,Calculated 294 (280-300); Phosphorous 2.1 mg/dL (2.7-4.5); Sodium 135 mEq/L (136-145); Total Protein 4.5 g/dL (6.4-8.9); eGFR For African Americans > 60 (> 60); eGFR For Non-African Americans > 60 (> 60)
[2019-10-14] MEDS ORDERED: Potassium Chloride Elixir 20 MEQ/15 ML UDC PO ONE (04:27)
[2019-10-14] MEDS: Sodium Bicarbonate 50 MEQ in 0.45 % Sodium Chloride 1,000 ML IVC SCH ×3 (04:50→13:09)
[2019-10-14] MEDS: D5% in Water 1,000 ML IVC SCH ×2 (04:50→09:40)
[2019-10-14 04:54] LABS: Basophils % 0.3 %; Eosinophils # 0.2 K/mcL (0.0-0.6); Eosinophils % 1.4 %; Hematocrit 36.8 % (37.5-50.1); Immature Granulocytes % 0.6 % (0-4); Lymphocytes # 0.6 K/mcL (0.6-4.6); Lymphocytes % 5.8 %; Mean Corpuscular HGB Conc 35.3 g/dL (31.6-35.5); Mean Corpuscular Hemoglobin 28.2 pg (28.0-33.3); Mean Corpuscular Volume 79.8 fL (83.0-100.0); Mean Platelet Volume 11.1 fL (9.4-12.4); Monocytes # 0.4 K/mcL (0.0-1.3); Monocytes % 4.1 %; Neutrophils # 9.1 K/mcL (1.6-8.9); Nucleated Red Blood Cells 0.4 /100 WBC (0); Platelet Count 117 K/mcL (140-400); Red Blood Count 4.61 M/mcL (4.19-5.50); Red Cell Distribution Width 18.3 % (11.5-14.5); Segmented Neutrophils % 87.8 %; White Blood Count 10.4 K/mcL (4.3-11.1)
[2019-10-14 05:35] LABS: ABG Base Excess -2 mEq/L (-2 to 3); ABG HCO3 17 mEq/L (21-27); ABG Oxygen Saturation 99 % (95-98); ABG PCO2 19 mmHg (35-45); ABG PH 7.58 pH Units (7.32-7.45); ABG PO2 95 mmHg (85-104); ABG TCO2 18 mEq/L (20-26); Blood Gas Modality AF; Blood Gas VT 550 cc
[2019-10-14] MEDS: Insulin LISPRO 300 UNITS/3 ML VIAL SQ SCH ×3 (05:58→17:00)
[2019-10-14] MEDS: Piperacillin/Tazobactam 3.375 GM in 0.9 % Sodium Chloride Mini Bag 100 ML IVPB SCH ×2 (06:55→15:34)
[2019-10-14] MEDS: Lactulose Oral Soln 20 GM/30 ML UDC PO SCH (06:55)
[2019-10-14] MEDS: Chlorhexidine Rinse 15 ML MOUTHWASH MM SCH (06:55)
[2019-10-14] MEDS: Pantoprazole 40 MG VIAL IVP SCH (06:55)
[2019-10-14] MEDS ORDERED: 0.9 % Sodium Chloride 250 ML IVC SCH ×2 (07:45→18:50)
[2019-10-14 09:38] LABS: ABG Base Excess -2 mEq/L (-2 to 3); ABG HCO3 21 mEq/L (21-27); ABG Oxygen Saturation 98 % (95-98); ABG PCO2 28 mmHg (35-45); ABG PH 7.48 pH Units (7.32-7.45); ABG PO2 91 mmHg (85-104); ABG TCO2 21 mEq/L (20-26); Blood Gas Modality AF; Blood Gas VT 550 cc
[2019-10-14] MEDS ORDERED: Furosemide 40 MG/4 ML VIAL IVP ONE ×2 (10:45→19:00)
[2019-10-14] MEDS ORDERED: *HR* LORazepam 2 MG/ML VIAL ONE (13:45)
[2019-10-14] MEDS ORDERED: *HR* LORazepam 2 MG/ML VIAL IVP PRN (13:53)
[2019-10-14] MEDS ORDERED: Dexmedetomidine HCl 400 MCG/100 ML MLS IVC SCH (14:45)
[2019-10-14] MEDS: Thiamine (B-1) 100 MG, Folic Acid 1 MG, MVI, adult with vitamin K 10 ML in 0.9 % Sodi... IVPB SCH (17:00)
[2019-10-14] MEDS ORDERED: Scopolamine Patch 1.5 MG PATCH.TD72 TD SCH (18:30)
[2019-10-14] MEDS ORDERED: Artificial Tears SOLN 15 ML BOTTLE BOTH EYES PRN (18:50)
[2019-10-14] MEDS ORDERED: Atropine Sulfate 1% 40 DROP/2 ML BOTTLE SL PRN (18:50)
[2019-10-15] MEDS: Artificial Tears SOLN 15 ML BOTTLE BOTH EYES SCH ×6 (03:46→21:48)
[2019-10-15] MEDS ORDERED: Aminoglycoside Consult 1 EACH MC ONE (08:43)
[2019-10-15] MEDS ORDERED: Morphine Sulfate 2 MG/ML SYRINGE IVP ONE ×2 (10:18→13:10)
[2019-10-15 12:46] LABS: AFP Tumor Marker Non-Pregnant 1 ng/mL (0-9)
[2019-10-15] MEDS: *HR* LORazepam 2 MG/ML VIAL IVP PRN ×4 (16:29→23:57)
[2019-10-15] MEDS: Morphine Sulfate 2 MG/ML SYRINGE IVP PRN ×3 (16:35→23:57)
[2019-10-15] MEDS ORDERED: CLEAR EYES NATURAL TEARS 15 ML BOTTLE BOTH EYES PRN (21:45)
[2019-10-15] MEDS: CLEAR EYES NATURAL TEARS 15 ML BOTTLE BOTH EYES SCH (23:58)
[2019-10-16] MEDS: *HR* LORazepam 2 MG/ML VIAL IVP PRN ×4 (03:26→23:19)
[2019-10-16] MEDS: CLEAR EYES NATURAL TEARS 15 ML BOTTLE BOTH EYES SCH ×6 (03:26→23:19)
[2019-10-16] MEDS: Morphine Sulfate 2 MG/ML SYRINGE IVP PRN ×5 (03:26→22:15)
[2019-10-16 10:05] LABS: ANA IgG by ELISA NONE DETECTED (None Detected); F-Actin (sm muscle) Ab IgG 6 Units (0-19)
[2019-10-16] MEDS ORDERED: Acetaminophen IV 1,000 MG/100 ML INFUS..BTL IVPB ONE (20:01)
[2019-10-16] MEDS: Atropine Sulfate 1% 40 DROP/2 ML BOTTLE SL PRN (23:22)
[2019-10-17] MEDS: Morphine Sulfate 2 MG/ML SYRINGE IVP PRN ×4 (00:50→07:58)
[2019-10-17] MEDS: *HR* LORazepam 2 MG/ML VIAL IVP PRN (04:05)
[2019-10-17] MEDS: CLEAR EYES NATURAL TEARS 15 ML BOTTLE BOTH EYES SCH ×2 (04:06→07:37)
[2019-10-17] MEDS ORDERED: *HR* LORazepam 2 MG/ML VIAL IVP PRN (07:01)
[2019-10-17] MEDS ORDERED: Haloperidol Lactate 5 MG/ML VIAL IVP PRN (07:01)
[2019-10-17 07:14] VITALS: BP 136/85
[2019-10-17] MEDS: Atropine Sulfate 1% 40 DROP/2 ML BOTTLE SL PRN (07:42)
[2019-10-17] MEDS ORDERED: Morphine Sulfate 2 MG/ML SYRINGE IVP PRN (08:03)
[2019-10-17] MEDS ORDERED: *HR* HYDROmorphone (PF) 1 MG/ML SYRINGE IVP ONE (08:10)
[2019-10-17 08:43] LABS: Serine Protease-3 Antibody 3 AU/mL (0-19)
[2019-10-17] MEDS ORDERED: Scopolamine Patch 1.5 MG PATCH.TD72 TD SCH (18:30)
== END 2019-10-17 08:44 | disposition expired | DRG 871 ==
LOC: ICNU 08:04 → EMEROOARM 08:04 → SUATTDRO 14:08 → MERGE 14:08 → ICNU 14:12 → 3ANU 10-14 22:10 → 2ANU 10-15 15:59
PROVIDERS: ADMIT Internal Medicine; ATTEND Internal Medicine